=== PATIENT | female | born 1970 | race Caucasian/White ===

== ENCOUNTER 2022-12-19 16:44 | Day surgery (SDC) | payer OTHER, SELFPAY ==
[2022-12-19] VITALS (10 sets, daily range): BP systolic 113–164; BP diastolic 67–90; PULSE 70–108; RESP 12–18; TEMP 36.2–43; O2SAT 94–100; BMI 26.6
--- NOTE | 2022-12-19 16:49 | HMH.EDGENADL ---
Discharge Plan Disposition Patient Disposition: Still a Patient Condition: Serious Clinical Impressions Clinical Impression: Torsed ovary Discharge ED Provider: Vanessa Braden General Adult HPI General Chief complaint: PAIN Stated complaint: pain Time Seen by Provider: 12/19/22 16:47 History of Present Illness HPI narrative: This patient is a 52-year-old female who reports a history of partial hysterectomy presenting to the emergency department for evaluation with concern for left ovarian torsion. She is a transfer from an outside hospital, where transvaginal ultrasound was obtained that demonstrated no flow to the left ovary. Patient states that she had sudden onset of left lower quadrant abdominal pain that was severe yesterday. It continued through today, which prompted her to go to outside hospital. She denies any other concerns, such as fevers, chills, changes in bowel movements, or other issues. I reviewed outside hospital medical records which demonstrated ultrasound read showing no flow to left ovary. CBC and CMP as well as urinalysis were unremarkable at outside hospital. Patient currently still complains of significant left lower quadrant pain but denies any other issues right now. Related Data Previous Rx's Medication Instructions Recorded hydrocodone 5 mg-acetaminophen 325 1 tab PO Q6H PRN pain #15 tabs 12/19/22 mg tablet ibuprofen 800 mg tablet 800 mg PO Q8H PRN pain #20 tabs 12/19/22 Allergies Allergy/AdvReac Type Severity Reaction Status Date / Time shellfish derived Allergy Verified 12/19/22 16:53 [facility] Disclaimer: The information contained in this section may have been updated after the patient was seen, as this information can be updated by other users. Medical History (Updated 12/19/22 @ 17:34 by Bushra Farnsworth DO) LLQ abdominal pain Social History (Updated 12/19/22 @ 17:56 by Bernie Shook CRNA) Smoking Status: Unknown if ever smoked alcohol intake: never substance use type: denies use current occupational status: employed Travel in the last 8 weeks: None ROS Obtained: Yes All systems reviewed & no additional complaints except as documented 14 point review of systems obtained and negative except as mentioned in HPI. Physical Exam General General appearance: alert Comment: Uncomfortable appearing Head Head exam: atraumatic and normocephalic Eye Eye exam: Present normal appearance, PERRL and EOMI ENT ENT exam: Present normal exam and normal oropharynx Neck Neck exam: Present normal inspection, full ROM and trachea midline Chest Chest inspection: Present normal inspection and symmetric chest wall rise; Absent tenderness Respiratory Respiratory exam: Present normal lung sounds bilaterally; Absent respiratory distress or wheezes Cardiovascular Cardiovascular exam: Present regular rate and normal rhythm Abdominal Exam Abdominal exam: Present soft, tenderness (Generalized), guarding and rebound; Absent distention Extremities Exam Extremities exam: Present normal inspection and full ROM Back Exam Back exam: Present normal inspection and full ROM Neurological Exam Neurological exam: Present alert, oriented X3 and CN II-XII intact; Absent motor sensory deficit Psychiatric Psychiatric exam: Present normal affect and normal mood Skin Skin exam: Present warm and dry Medical Decision Making Medical Records Medical records reviewed: Yes I reviewed the patient's medical records. Marco Inquiry Pt receiving controlled substance: No Vital Signs: 12/19/22 16:44 12/19/22 17:00 12/19/22 17:18 Temperature 97.4 F L 97.4 F L Temperature Source Oral Oral Pulse Rate 70 70 Pulse Rate [Right] 76 Respiratory Rate 16 18 16 Blood Pressure 118/70 118/70 Blood Pressure [Right Arm] 113/69 Blood Pressure Mean 82 Blood Pressure Mean [Right Arm] 83 Blood Pressure Source Automatic Cuff Blood Pressure Source [Right Arm] Automatic Cuff Blood Pressu
--- NOTE | 2022-12-19 16:55 | PC.NURSE ---
Dr Farnsworth at bedside
--- NOTE | 2022-12-19 17:04 | EXP.ANES.CKL ---
[facility] Disclaimer: The information contained in this section may have been updated after the patient was seen, as this information can be updated by other users. Medical History (Updated 12/19/22 @ 17:34 by Bushra Farnsworth DO) LLQ abdominal pain Social History (Updated 12/19/22 @ 17:36 by Bushra Farnsworth DO) Smoking Status: Unknown if ever smoked alcohol intake: never substance use type: denies use current occupational status: employed Travel in the last 8 weeks: None [facility] Anesthesia Checklist Patient Identification Patient Identification: Arm Band and Verbal (Name & ) Structural Data Admitted From: Home Planned Operative Procedure/s: Exploratory laparoscopy Consent for Planned Operative Procedure(s) Verified: Yes NPO Status Verified Time NPO: 00:00 Airway Assessment C-Spine Mobility Assessed: Yes TMJ Mobility Assessed: Yes Dentition: Good Dentition Neurological Assessment Level of Consciousness: Awake Hx Seizures: No Numbness or tingling in extremities: No Anesthesia Plan Anesthesia Risk discussed: Yes Anesthesia Plan: Verified Anesthesia Type: General
--- NOTE | 2022-12-19 17:10 | PC.NURSE ---
, AUTOMOBILE MECHANIC MOTOR, PAPER TESTING SUPERVISOR, and TECHNICAL TRANSLATOR @ BS
--- NOTE | 2022-12-19 17:18 | PC.NURSE ---
Patient to surgery by OR staff and HIV NURSE
--- NOTE | 2022-12-19 17:19 | EXP.HP ---
History of Present Illness *Admission Date: 12/19/22 *Reason for visit:: Acute LLQ pain, left ovarian mass *History of present illness: Ms Radha Chavez is a very pleasant 52 yo P0000 who was transferred to [facility] for surgery from [facility] ED. Patient states she did not feel great when she woke up yesterday morning, 12/18/22. Aroun 1400 on 12/18/22 she really noticed LLQ pain. Pain persisted and increased in intensity. She went to [facility] ED this morning for the pain. Pain is sharp and radiates to her back. She admits to associated nausea and bloated feeling with the pain. No vomiting. Denies fever/chills. History of laparoscopic hysterectomy for painful periods. She admits to occasional hot flashes. She is following with a functional medicine doctor at home and taking vitamins and supplements. She is visiting [place] from [place] for the week. History of depression for which she takes Sertraline. Reports shellfish allergy. Pelvic ultrasound demonstrated moderate amount of complex fluid which may be hemorrhagic. In the left adnexa there is a probable enlarged heterogeneous left ovary without blood flow recorded consistent with ovarian torsion. [facility] Disclaimer: The information contained in this section may have been updated after the patient was seen, as this information can be updated by other users. Medical History (Updated 12/19/22 @ 17:34 by Bushra Farnsworth DO) LLQ abdominal pain Social History Smoking Status: Unknown if ever smoked alcohol intake: never current occupational status: employed Travel in the last 8 weeks: None Review of Systems Review of Systems Review of systems:: pertinent systems reviewed and negative unless documented below *Gastrointestinal Gastrointestinal: Reports abdominal pain, Reports bloating and Reports nausea Meds Home Medications and Allergies Home Medications Medication Instructions Recorded Confirmed Type hydrocodone 5 mg-acetaminophen 325 1 tab PO Q6H PRN pain #15 tabs 12/19/22 Rx mg tablet ibuprofen 800 mg tablet 800 mg PO Q8H PRN pain #20 tabs 12/19/22 Rx New Prescriptions to Start Prescriptions: hydrocodone-acetaminophen Bushra Farnsworth ibuprofen Bushra Farnsworth Allergies Allergy/AdvReac Type Severity Reaction Status Date / Time shellfish derived Allergy Verified 12/19/22 16:53 Exam Data for Last 24 hours Vital signs and Labs for Last 24 Hours: Temp Pulse Resp BP Pulse Ox 97.4 F L 70 18 118/70 99 12/19/22 16:44 12/19/22 17:00 12/19/22 17:00 12/19/22 17:00 12/19/22 17:00 I & O for Last 24 hours: Intake & Output 12/16/22 12/17/22 12/18/22 12/19/22 23:59 23:59 23:59 23:59 Weight 164 lb 15.903 oz Constitutional Constitutional: mild distress and cooperative *Routine HEENT Exam Head: Present normocephalic and atraumatic Eye: Absent conjunctivae pink ENT: Present mucous membranes moist and dentition normal *Routine Neck Exam Neck: Present full ROM *Routine Respiratory Exam Respiratory: Present CTA bilaterally and normal respiratory effort *Routine Cardiovascular Exam Cardiovascular: Present RRR *Routine Abdominal Exam Abdominal: Present soft, tenderness (+ LLQ tenderness to mild palpation), distended and rebound; Absent guarding *Routine Rectal Exam Rectal:: deferred *Routine Genitalia Exam Genitalia:: deferred *Routine Extremities Exam Extremities: Present full ROM; Absent edema *Routine Neurological Exam Neurological: Present alert, oriented X3, moving all extremities and normal speech Routine Psychiatric Exam Psychiatric: Present normal affect and cooperative Assessment and Plan *Assessment and plan (1) Torsed ovary: Status: Acute Category: Medical Code(s): N83.519 - Torsion of ovary and ovarian pedicle, unspecified side (2) LLQ abdominal pain: Status: Acute
--- NOTE | 2022-12-19 18:52 | EXP.ANES.I ---
[facility] Anesthesia Record Part I Anesthesia Record I Intake, IV Amount: 700 Estimated blood loss (mL): 50 Urine output (mL): 400 Blood Pressure: 147/77 SaO2: 97 Pulse Rate: 108 Respiratory Rate: 12 Temperature: 97.2 F Patient is:: Awake Stable to PACU at:: 18:50
--- NOTE | 2022-12-19 18:57 | EXP.OP.NOTE ---
Date of procedure: 12/19/22 Pre-op Diagnosis:: 1. Left lower quadrant pain 2. Left ovarian mass 3. Left ovarian torsion Post-op Diagnosis:: 1. Left lower quadrant pain 2. Left ovarian mass 3. Left ovarian torsion 4. Ruptured left hemorrhagic cyst 5. Hemoperitoneum 6. Stage 1 endometriosis of pelvic peritoneum Procedure performed:: 1. Evacuation of hemoperitoneum 2. Laparoscopy, left oophorectomy Surgeon:: Bushra Farnsworth DO Paving Inspector(s):: N/a GRAIN INSPECTOR:: Bernie Shook Anesthesia: GETA Estimated blood loss (mL): 50 Clinical Note:: Ms Radha Chavez is a very pleasant 52 yo P0000 who was transferred to [facility] for surgery from [facility] ED. Patient states she did not feel great when she woke up yesterday morning, 12/18/22. Aroun 1400 on 12/18/22 she really noticed LLQ pain. Pain persisted and increased in intensity. She went to [facility] ED this morning for the pain. Pain is sharp and radiates to her back. She admits to associated nausea and bloated feeling with the pain. No vomiting. Denies fever/chills. History of laparoscopic hysterectomy for painful periods. She admits to occasional hot flashes. She is following with a functional medicine doctor at home and taking vitamins and supplements. She is visiting [place] from [place] for the week. History of depression for which she takes Sertraline. Reports shellfish allergy. Pelvic ultrasound demonstrated moderate amount of complex fluid which may be hemorrhagic. In the left adnexa there is a probable enlarged heterogeneous left ovary without blood flow recorded consistent with ovarian torsion. Operative findings:: 1. On bimanual exam, surgically absent cervix and uterus. No adnexal masses palpated 2. On laparoscopic exam, grossly normal appearing liver, gallbladder and bowel. Hemoperitoneum with large clots in posterior cul-de-sac. Left ovarian torsion with purple IP ligament and ruptured hemorrhagic cyst of left ovary covered in clots. Powder burn lesion noted on peritoneum in posterior cul-de-sac consistent with endometriosis. Pelvic peritoneal defect in posterior cul-de-sac noted. Operative note:: Risks, benefits and alternatives were discussed with the patient. Risks include but are not limited to bleeding, infection and damage to adjacent structures. Patient voiced understanding and agreed to proceed with surgery. She was wheeled back to the operating room and placed under general anesthesia without difficulty. She was placed in the dorsal lithotomy position and prepped and draped in normal sterile fashion. A straight catheter was used to drain the bladder. A bimanual exam was performed. A sponge stick was placed in the vaginal vault. Attention was then turned to the abdomen. Skin just below the umbilicus was injected with 0.5% marcaine. A 1.5 cm infraumbilical incision was made. Veress needle was tested and inserted intrabdominally. Opening pressure was 5 mm Hg. The peritoneal cavity was insulflated to 15 mm Hg. An 11 mm blunt trocar was inserted intrabdominally. Obturator was removed and sleeve left in place. Laparoscope was inserted into the trocar sleeve. Abdomen and pelvis was viewed in its entirety. Examination of the peritoneal cavity revealed no signs of injury from entry. See findings above. Pictures were taken. Bowel was swept cephalad with blunt probe. RLQ port site was transilluminated and injected with 0.5% marcaine. A 1.5 cm incision was made and an 11 mm trocar was inserted intraabdominally under direct laparoscopic visualization. Obturator was removed and sleeve was left in place. LLQ was transilluminated and injected with 0.5% marcaine. A 1.5 cm incision was made and an 11 mm trocar was inserted intraabdominally under direct laparoscopic visualization. Obturator was removed and sleeve was left in place. Next, pelvis was irrigated and clots were removed from posterior cul-de-sac. The left ovary was grasped with a Juan J clamp. Ligasure was used to clamp. ligate and
--- NOTE | 2022-12-23 07:39 | P.PNANES_ITS ---
[facility] Anesthesia Record Part II Anesthesia Record Part II Discharge Time: 19:20 (12/19/22) Destination: Surgical Day Care (OP Surgery) PACU nurse assessment reviewed?: Yes Patient Condition:: Good Anesthesia Complications:: None Swallowing reflex intact?: Yes Cyanosis?: No Blood Pressure: 149/80 Pulse Rate: 92 Temperature: 97.5 F Mental Status: Alert & Oriented Pain level:: 0 Nausea and/or vomitting:: None Intake, IV Amount: 0
[2022-12-23 07:40] VITALS: BP 149/80; PULSE 92; TEMP 36.4
== END 2022-12-19 19:45 | disposition home or self-care (01) ==
LOC: ER 17:25 → SDC 17:28
PROVIDERS: Emergency Provider Emergency Medicine; Visit Provider Obstetrics & Gynecology
PROC: (CPT 49320; principal; 2022-12-19 18:00)
DX: N83.512 Torsion of left ovary and ovarian pedicle (principal); R10.32 Left lower quadrant pain; N83.202 Unspecified ovarian cyst, left side; K66.1 Hemoperitoneum; N80.30 Endometriosis of pelvic peritoneum, unspecified
CPT/HCPCS: 58661; J0131; J0330; J2405